=== PATIENT | male | born 1940 | race Caucasian/White ===

== ENCOUNTER → 2020-02-19 | Day surgery (SDC) | payer MEDICARE ==
[2020-02-14 10:58] LABS: BASOPHILS # (AUTO) 0.1 (0.0-0.1); BASOPHILS % 1.1 % (0.0-1.0); EOSINOPHILS # (AUTO) 0.2 (0.0-0.4); EOSINOPHILS % 2.2 % (0.0-6.0); HEMATOCRIT 37.6 % (38.2-49.6); HEMOGLOBIN 12.2 g/dL (14.0-18.0); LYMPHOCYTES # (AUTO) 4.2 (1.0-3.2); LYMPHOCYTES % 50.5 % (18.0-39.1); MEAN CORPUSCULAR HEMOGLOBIN 30.2 pg (28-32); MEAN CORPUSCULAR HGB CONC 32.4 g/dL (31-35); MEAN CORPUSCULAR VOLUME 93.1 fL (81-99); MONOCYTES # (AUTO) 1.1 (0.2-0.8); NEUTROPHILS # (AUTO) 2.8 (2.1-6.9); PLATELET COUNT 229 x10e3/uL (140-360); RED BLOOD COUNT 4.04 x10e6/uL (4.3-5.7); RED CELL DISTRIBUTION WIDTH 13.7 % (11.7-14.4)
[~2020-02-19] MED LIST: APPLE CIDER VI500 MG PO; ATORVASTATIN CA10 MG PO; B COMPLEX1 EACH PO; COQ-10100 MG PO; FERROUS SULFAT324 MG PO; IBUPROFEN100 M1 PO; LIDOCAINE HCL 2% LOCAL INJ 5 ML SDV VIAL INJ ONE; MELATONIN3 M1 PO; MIDAZOLAM HCL 2 MG/2 ML VIAL ONE; MUCINEX600 MG PO; MULTIVITAMINS1 EAC7 PO; PROPOFOL IV EMULSION 10 MG/ML 20 ML VIAL ONE; SLOW-MAG64 MG PO; TYLENOL325 M2 PO; VITAMIN B 12 PO; VITAMIN C1000 MG PO; VITAMIN D3250 MCG PO; ZINC SULFATE220 M1 PO
--- NOTE | 2020-02-19 07:15 | NUR ---
SPIRITUAL CARE - Pre-Surgery Assessment: Pt in bed. Pt's son-in-law at bedside. Pt reported supportive attention from family and friends. Intervention: Legal Secretary provided pastoral presence, hospitality, and sympathetic listening. Acquainted pt with availability of lithograph press feeder while hospitalized. Outcome: Pt expressed appreciation for visit. No need for follow up indicated at this time. [facility] Spiritual Care Department O: [phone]
[2020-02-19 10:05] VITALS: BP 110/75
--- NOTE | 2020-02-19 13:41 | Operative Report ---
DATE OF PROCEDURE: 02/19/2020 SURGEON: Jose Rivera MD PROCEDURE PERFORMED: Colonoscopy. PREOPERATIVE DIAGNOSES: History of colon polyps, family history of colon cancer. POSTOPERATIVE DIAGNOSES: Colon polyps and diverticulosis. PREOPERATIVE MEDICATIONS: Consisted of general anesthesia. DESCRIPTION OF PROCEDURE: Using an [employer] video colonoscope was inserted into the patient's rectum and advanced without difficulty to the level of the cecum. The colon was studied from that level back down to the rectum. There was a 4 mm size polyp in the cecum, which was removed with hot biopsy forceps. There was another 4 mm size polyp in the rectum, which was removed with hot biopsy forceps. There was diverticulitis in the sigmoid and descending colon without evidence of diverticulitis. The colonoscope was withdrawn from the patient's rectum and the procedure was ended. In conclusion, we have findings of colon polyps and diverticulosis. Jose Rivera MD SAF/MODL /[id number]
== END | disposition home or self-care (01) ==
LOC: OR 06:09
PROVIDERS: ATTEND Internal Medicine Gastroenterology
DX: Z12.11 Encounter for screening for malignant neoplasm of colon (principal); D12.0 Benign neoplasm of cecum; K62.1 Rectal polyp; K57.30 Diverticulosis of large intestine without perforation or abscess without bleeding; Z01.810 Encounter for preprocedural cardiovascular examination; Z01.812 Encounter for preprocedural laboratory examination; Z20.828 Contact with and (suspected) exposure to other viral communicable diseases; Z68.32 Body mass index [BMI] 32.0-32.9, adult; Z80.0 Family history of malignant neoplasm of digestive organs
CPT/HCPCS: 36415; 45384; 85025; 88305; 93005; J2001; J2250; J2704; U0002